=== PATIENT | female | born 1965 | race Caucasian/White ===

== ENCOUNTER 2017-02-05 08:16 | Day surgery (SDC) | payer BC ==
[2017-01-31 15:59] LABS: BASOPHILS 0.2 %; BASOPHILS ABSOLUTE 0.01 10/3/uL (0.0-0.16); EOSINOPHILS 2.2 %; EOSINOPHILS ABSOLUTE 0.13 10/3/uL (0.0-0.53); HEMATOCRIT 30.9 % (36.0-48.0); HEMOGLOBIN 10.9 g/dL (12.0-16.0); IMMATURE GRANULOCYTES 0.2 %; IMMATURE GRANULOCYTES ABSOLUTE 0.01 10/3/uL (0.0-0.11); LYMPHOCYTES 41.5 %; LYMPHOCYTES ABSOLUTE 2.48 10/3/uL (0.67-4.30); MEAN CORPUS HGB CONC 35.3 g/dL (32.0-36.0); MEAN CORPUSCULAR HEMOGLOB 31.1 pg (26.0-34.0); MEAN CORPUSCULAR VOLUME 88.3 fL (80-100); MEAN PLATELET VOLUME 8.9 fL (9.2-13.0); MONOCYTES 4.2 %; MONOCYTES ABSOLUTE 0.25 10/3/uL (0.21-1.20); NEUTROPHILS 51.7 %; PLATELET COUNT 178 10/3/uL (150-400); RBC DISTRIBUTION WIDTH 16.1 % (12.0-16.0)
[2017-01-31 16:00] LABS: MANUAL DIFF NO %
[2017-01-31 16:04] LABS: PARTIAL THROMBO TIME 29.5 SEC (22.5-37.2)
[2017-01-31 16:05] LABS: INTERNATIONAL NORMAL RATI 1.1 UNITS (-); PROTIME (NOT ORD) 13.7 SEC (12.0-14.5)
[2017-01-31 16:19] LABS: ALBUMIN 3.6 G/DL (3.5-5.0); BUN (BLOOD UREA NITROGEN) 10 MG/DL (6-23); CALCIUM, SERUM 8.3 MG/DL (8.5-10.4); CHLORIDE, SERUM 109 MMOL/L (96-112); CO2 (CARBON DIOXIDE) 27 MMOL/L (24-34); CREATININE 0.68 MG/DL (0.55-1.02); GFR AFRICAN AMERICAN 116 ML/MIN (>=60); GFR NON AFRICAN AMERICAN 100 ML/MIN (>=60); GLOBULIN 1.8 G/DL (2.5-4.1); POTASSIUM, SERUM 3.2 MMOL/L (3.5-5.3); SGOT(AST) 19 U/L (5-40); SGPT(ALT) 37 U/L (5-65); SODIUM, SERUM 144 MMOL/L (135-148); TOTAL BILIRUBIN 0.5 MG/DL (0-1.2); TOTAL PROTEIN 5.4 G/DL (6.0-8.5)
[2017-01-31 16:20] LABS: ALKALINE PHOSPHATASE 82 U/L (45-117); GLUCOSE, SERUM 87 MG/DL (60-99)
--- NOTE | ~2017-02-05 | OP ---
Record Of Operation [facility] [address] [place]. [address] NAME: EDIE MOON : 61 STATUS : [facility] PAT#: [id number] AGE: 51 ADM/REG DATE : 02/05/17 MR#: [id number] REPORT SERV DATE: 02/06/17 DICTATED BY: NICK BOYD III DATE: 02/05/17 REPORT STATUS : Draft TRANSCRIBED BY: MODL DATE: 02/05/17 DATE OF PROCEDURE: 02/05/2017 PREOPERATIVE DIAGNOSIS: Symptomatic cholelithiasis and cholecystitis in a patient with an IgE deficiency and known irritable bowel syndrome. 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 PATHOLOGY: A number of adhesions around the gallbladder, which were taken down with blunt and sharp dissection and a nonacute gallbladder with small stones and 3 mm cystic duct, normal-appearing common duct without filling defects on the intraoperative cholangiogram. The liver was essentially normal in appearance and the spleen was slightly enlarged, which were pictorially documented. The bowel was unremarkable to laparoscopic view, although there was a fair amount of gas in the small bowel. ANESTHESIA: General with endotracheal tube supplemented with 0.5% Marcaine with epinephrine as a right costal margin block using this Marcaine to block the 6th, 7th intercostal nerves for postop pain assistance. DESCRIPTION OF PROCEDURE: Laparoscopic cholecystectomy with intraoperative cholangiography followed by the intercostal block. SURGEON: Nick Boyd M.D., [facility] [employer] ACCOUNTING MANAGER: Faisal Boyd RN, [facility]. PROCEDURE IN DETAIL: The patient was brought to the operative suite and time-out called and complete agreement on the procedure, medications, allergies, etc. were accomplished without any dissent. The patient was prepped and draped in routine fashion. Adequate general anesthetic and the area of the abdomen approached through an infraumbilical incision through previous incisions from laparoscopy, where there was some scar tissue identified. Open trocar technique was utilized to enter the peritoneal cavity identifying the peritoneal cavity and incising it with Metzenbaum scissors and view showed no adhesions and the balloon port 12 mm size was inserted without difficulty. The balloon was inflated and the abdominal cavity insufflated to 15 mmHg pressure with carbon dioxide gas. The 0 degree operative telescope was then placed into peritoneal cavity, and internal exam was performed as described earlier. The scope was 1st placed in the area of the lower abdomen where some gaseous-filled small bowel was seen and that was unremarkable with normal-appearing serosal surface. The upper abdomen was scoped and the spleen was minimally enlarged but clearly visible in this thin patient and the colon was gaseously filled especially in the area of the splenic flexure. The liver was unremarkable. The gallbladder was noted to have a number of adhesions over the entire surface of the gallbladder, which were later taken down. Record Of Operation [facility] [address] [place]. [address] NAME: EDIE MOON : 61 STATUS : [facility]#: [id number] AGE: 51 ADM/REG DATE : 02/05/17 MR#: [id number] REPORT SERV DATE: 02/06/17 DICTATED BY: NICK BOYD III DATE: 02/05/17 REPORT STATUS : Draft TRANSCRIBED BY: MODL DATE: 02/05/17 The abdomen was entered through the falciform ligament under video observation and one 5 mm trocar placed in the right costal margin at the mid axillary line under video observation. The gallbladder was then grasped and dissected and freed of adhesions taking about 20 minutes of operative time to take down the adhesions, using cautery for hemostasis and clearing gallbladder out, freeing up the infundibulum and skeletonizing the cystic duct. The cystic duct was traced down to the common duct junction and the cystic duct was clearly seen going up into the gallbladder with "critical view" having been achieved. The cystic duct was controlled on the infundibular side with a titanium clip and the cystic artery was controlled with two titanium clips proximally and one distally. A percutaneously introduced Arrow catheter was then placed through a small incision at the site of cystic duct, which was approximately 3 mm in diameter and the Arrow catheter controlled and held in place in the cystic duct with a partially collapsed titanium clip. Real-time C-arm intraoperative cholangiography obtained showing good flow into the duodenum. Good flow into the distal biliary system but very little flow up into the hepatic radicals due to preferential flow but clearly the junction of the cystic duct with the proper hepatic duct were seen with flow up into the area of the hepatic parenchyma was noted only, not feeling any of the secondary or tertiary radicals. The pancreatic duct was partially visualized and no filling defects were seen. No impedance to flow or extravasation. The cystic duct clip was removed as well as the Arrow catheter, and three titanium clips placed on the cystic duct stump prior to its complete transection. Cystic artery was transected between the appropriate clips and retrograde dissection of gallbladder carried out with cautery current. Moderate bleeding was incurred during the retrograde dissection, which was controlled with cautery current. After removal of the gallbladder, Surgiflo was instilled into gallbladder bed to assist with potential oozing, especially in the patient, who is anemic with the IgA deficiency. The gallbladder was removed through the infraumbilical incision bringing up to the surface and gently pulling it through the incision without leakage or damage to the wall. After this was done, all areas checked. Irrigation and areas reexamined with good hemostatic control noted and good status. The trocars were removed under video observation. The infraumbilical trocar was closed with [id number] sutures of 0 Vicryl. All three trocar sites were closed with 3-0 Vicryl at the subcu level and Dermabond applied to the skin for skin approximation. Band-Aids were applied. 30 mL 0.5% Marcaine with epinephrine were injected along the costal margin and into the three trocar sites for postop pain supplementation. The patient tolerated the procedure well. Estimated blood loss was 25 mL. No complications and good status. The patient is given a prescription for scopolamine 1.5 mg dermally to take every 72 hours transdermally as needed for nausea, Zofran 4 mg to take every six hours p.r.n. for nausea Record Of Operation [address] [address] NAME: EDIE MOON : 61 STATUS : [facility] PAT#: [id number] AGE: 51 ADM/REG DATE : 02/05/17 MR#: [id number] REPORT SERV DATE: 02/06/17 DICTATED BY: NICK BOYD III DATE: 02/05/17 REPORT STATUS : Draft TRANSCRIBED BY: MODL DATE: 02/05/17 and Lortab 7.5/325 to take every four hours p.r.n. for pain. RB/JOSE C Nick Boyd III, M.D. / [id number] CC: Crystal Montelongo III, TRACY Michael Goodman, M.D. JANARA YOUNGER, MD
[~2017-02-05 08:16] MED LIST: ALLEGRA D PO; AMB5 PO; LEVSINTAB PO; PREV30 PO; REQUIP5 PO
== END 2017-02-05 19:10 | disposition home or self-care (01) ==
LOC: SDC 08:16
PROVIDERS: Surgery
PROC: BF131ZZ Fluoroscopy of Gallbladder and Bile Ducts using Low Osmolar Contrast (ICD-10-PCS; 2017-02-05)
PROC: 0FT44ZZ Resection of Gallbladder, Percutaneous Endoscopic Approach (ICD-10-PCS; principal; 2017-02-05 09:45)
DX: K80.10 Calculus of gallbladder with chronic cholecystitis without obstruction (principal)
CPT/HCPCS: 74300; 80053; 82150; 83690; 85025; 85610; 85730; 88304; 93005; A9270-GY; J0690; J1170; J1885; J2250; J2270; J2405; J2550; J2710; J3010; Q9967